=== PATIENT | female | born 1965 | race Caucasian/White ===

== ENCOUNTER 2018-10-11 18:17 | Emergency (ER) | payer OTHER ==
--- NOTE | 2018-10-11 18:52 | EDM.PDOC ---
ED HPI GENERAL MEDICAL PROBLEM - General Chief Complaint: Lower Extremity Injury/Pain Stated Complaint: PAIN IN EXTREMITIES Time Seen by Provider: 10/11/18 18:40 Source of Information: Reports: Patient History Limitations: Reports: No Limitations - History of Present Illness INITIAL COMMENTS - FREE TEXT/NARRATIVE: 52-year-old female who is usually healthy, has had 2 weeks of increasing extremity pain, generalized myalgia and diffuse soreness. She is in town helping take care of her grandchild, before she came up to the area she did stop at [place] a few days ago but waited over 5 hours to be seen in the left. She does not think she's having fevers, she has mild intermittent headaches, no visual complaints, no shortness of breath, no chest pain, no palpitations, no GI symptoms or urinary symptoms. She has had no rash. Her joints aren't objectively swollen or reddened, but subjectively they feel stiff and sore. Her main complaints are in her arms and legs. [place] exposed to ticks and other insects. She denies any fevers or chills. No weight loss. Onset: Gradual Duration: Week(s): (2-3 weeks) Location: Reports: Generalized (Especially her extremities) Improves with: Reports: None Worsens with: Reports: Movement Associated Symptoms: Reports: Malaise bilateral feet and lower legs and bilateral hands and lower arms Pain Score (Numeric/FACES): 7 - Related Data Allergies Allergy/AdvReac Type Severity Reaction Status Date / Time banana Allergy Anaphylactic Verified 10/11/18 18:40 Shock kiwi Allergy Anaphylactic Verified 10/11/18 18:40 Shock Penicillins Allergy Rash Verified 10/11/18 18:40 Sulfa (Sulfonamide Allergy Cannot Verified 10/11/18 18:40 Antibiotics) Remember Tetracyclines Allergy Rash Verified 10/11/18 18:40 tomato Allergy Anaphylactic Verified 10/11/18 18:40 Shock Home Meds: Home Meds DULoxetine [Cymbalta] 60 mg PO DAILY 10/11/18 [History] Montelukast [Singulair] 10 mg PO DAILY 10/11/18 [History] Pantoprazole Sodium [Protonix] 40 mg PO BID 10/11/18 [History] Past Medical History Respiratory History: Reports: Asthma [employer] History: Reports: - Infectious Disease History Infectious Disease History: Reports: Chicken Pox - Past Surgical History Female Surgical History: Reports: Hysterectomy Musculoskeletal Surgical History: Reports: Other (See Below) Other Musculoskeletal Surgeries/Procedures:: knee surgery, neck injury Social & Family History - Tobacco Use Smoking Status *Q: Never Smoker - Caffeine Use Caffeine Use: Reports: Soda - Recreational Drug Use Recreational Drug Use: No ED ROS GENERAL - Review of Systems Review Of Systems: See Below Constitutional: Reports: Malaise. Denies: Fever, Chills, Decreased Appetite HEENT: Reports: No Symptoms Respiratory: Reports: No Symptoms Cardiovascular: Reports: No Symptoms GI/Abdominal: Reports: No Symptoms : Reports: No Symptoms Musculoskeletal: Reports: Other (See history of present illness) Skin: Reports: No Symptoms. Denies: Rash Neurological: Reports: Headache (. Mild intermittent dull headache). Denies: Dizziness Psychiatric: Reports: No Symptoms ED EXAM, GENERAL - Physical Exam Exam: See Below Exam Limited By: No Limitations General Appearance: Alert, No Apparent Distress Eye Exam: Bilateral Eye: EOMI Head: Atraumatic Neck: Supple Respiratory/Chest: No Respiratory Distress, Lungs Clear Cardiovascular: Regular Rate, Rhythm, No Rub Extremities: Normal Inspection (I cannot find any objective signs of inflammation other than palpation tenderness of the ankles and wrists, there are no effusions, swelling, redness or asymmetry) Neurological: Alert, Oriented Psychiatric: Normal Affect, Normal Mood Skin Exam: Warm, Dry Course - Vital Signs Last Recorded V/S: Last Vital Signs Temp 97.4 F 10/11/18 18:38 Pulse 96 10/11/18 18:38 Resp 16 10/11/18 18:38 BP 121/90 10/11/18 18:38 Pulse Ox 98 10/11/18 18:38 - Orders/Labs/Meds Orders: Active Orders 24 hr Category Date Time Status [facility]ANULOCYT[facility] Urgent Lab 10/11/18 19:10 Received LYME, TOTAL AB TEST/REFLEX Urgent Lab 10/11/18 19:10 Received Labs: Laboratory Tests 10/11/18 10/11/18 10/11/18 Range/Units 19:10 19:10 19:10 WBC 6.0 (4.5-11.0) K/uL RBC 4.38 (3.30-5.50) M/uL Hgb 13.2 (12.0-15.0) g/dL Hct 40.8 (36.0-48.0) % MCV 93 (80-98) fL MCH 30 (27-31) pg MCHC 32 (32-36) % Plt Count 338 (150-400) K/uL Neut % (Auto) 43 (36-66) % Lymph % (Auto) 39 (24-44) % [place] % (Auto) 9 H (2-6) % Eos % (Auto) 8 H (2-4) % Baso % (Auto) 1 (0-1) % ESR 18 (0-25) mm/hr Sodium 140 (140-148) mmol/L Potassium 3.7 (3.6-5.2) mmol/L Chloride 104 (100-108) mmol/L Carbon Dioxide 25 (21-32) mmol/L Anion Gap 11.0 (5.0-14.0) mmol/L BUN 13 (7-18) mg/dL Creatinine 0.8 (0.6-1.0) mg/dL Est Cr Clr Drug Dosing 71.84 mL/min Estimated GFR (MDRD) > 60 (>60) Glucose 96 (74-106) mg/dL Calcium 9.0 (8.5-10.1) mg/dL Total Bilirubin 0.3 (0.2-1.0) mg/dL AST 14 L (15-37) U/L ALT 28 (12-78) U/L Alkaline Phosphatase 77 (46-116) U/L Creatine Kinase (26-192) U/L Total Protein 7.5 (6.4-8.2) g/dL Albumin 3.8 (3.4-5.0) g/dL Globulin 3.7 H (2.3-3.5) g/dL Albumin/Globulin Ratio 1.0 L (1.2-2.2) 10/11/18 Range/Units 19:10 WBC (4.5-11.0) K/uL RBC (3.30-5.50) M/uL Hgb (12.0-15.0) g/dL Hct (36.0-48.0) % MCV (80-98) fL MCH (27-31) pg MCHC (32-36) % Plt Count (150-400) K/uL Neut % (Auto) (36-66) % Lymph % (Auto) (24-44) % [place] % (Auto) (2-6) % Eos % (Auto) (2-4) % Baso % (Auto) (0-1) % ESR (0-25) mm/hr Sodium (140-148) mmol/L Potassium (3.6-5.2) mmol/L Chloride (100-108) mmol/L Carbon Dioxide (21-32) mmol/L Anion Gap (5.0-14.0) mmol/L BUN (7-18) mg/dL Creatinine (0.6-1.0) mg/dL Est Cr Clr Drug Dosing mL/min Estimated GFR (MDRD) (>60) Glucose (74-106) mg/dL Calcium (8.5-10.1) mg/dL Total Bilirubin (0.2-1.0) mg/dL AST (15-37) U/L ALT (12-78) U/L Alkaline Phosphatase (46-116) U/L Creatine Kinase 256 H (26-192) U/L Total Protein (6.4-8.2) g/dL Albumin (3.4-5.0) g/dL Globulin (2.3-3.5) g/dL Albumin/Globulin Ratio (1.2-2.2) - Re-Assessments/Exams Free Text/Narrative Re-Assessment/Exam: 10/11/18 18:56 CBC, CMP, sedimentation rate and Lyme's titer and ehrlichiosis were obtained. Also a CK. 10/11/18 19:55 CBC is normal, CMP also a very reassuring, CK however is mildly elevated. I asked the patient if she has done anything physical that would cause muscle injury over the last several days and she said "I can't do anything it's too sore". Awaiting a sedimentation rate, polymyalgia rheumatica needs to be considered if sedimentation rate is elevated. 10/11/18 20:24 Sedimentation rate returned 13. Patient will be started on doxycycline pending the rest of the labs. The anti-inflammatory properties of doxycycline may be beneficial as well. Copies of her labs were given to her and she will recheck when home. Continue with an anti-inflammatory. Departure - Departure Time of Disposition: 20:33 Disposition: Home, Self-Care 01 Clinical Impression: Myalgia and myositis, unspecified - Discharge Information Instructions: Muscle Pain, Adult Referrals: PCP,None [Primary Care Provider] - Forms: ED Department Discharge Care Plan Goals: Take doxycycline twice daily as prescribed and continue with anti- inflammatories. Increase activity as tolerated and recheck in 1-2 weeks if not improving satisfactorily. Return sooner if worsening. - My Orders Last 24 Hours: My Active Orders 10/11/18 19:10 H[facility]AN GRANULOCYTIC [facility] Urgent LYME, TOTAL AB TEST/REFLEX Urgent - Assessment/Plan Last 24 Hours: My Active Orders 10/11/18 19:10 H[facility]AN GRANULOCYTIC [facility] Urgent LYME, TOTAL AB TEST/REFLEX Urgent
[2018-10-14 13:09] LABS: HGE IGG TITER Negative (Neg:<1:64); HGE IGM TITER Negative (Neg:<1:20); LYME IGG/IGM AB <0.91 ISR (0.00-0.90)
== END 2018-10-11 20:33 | disposition home or self-care (01) ==
LOC: JP.ED 18:17
DX: M60.9 Myositis, unspecified (principal); J45.909 Unspecified asthma, uncomplicated; Z88.0 Allergy status to penicillin; Z88.2 Allergy status to sulfonamides; Z88.8 Allergy status to other drugs, medicaments and biological substances; Z91.018 Allergy to other foods; Z79.899 Other long term (current) drug therapy
CPT/HCPCS: 36415; 80053; 82550; 85025; 85651; 86618; 86666; 99283